=== PATIENT | female | born 1950 | race Caucasian/White ===

== ENCOUNTER 2019-03-01 08:00 | Day surgery (SDC) | payer MEDICARE, OTHER ==
[~2019-03-01] VITALS: Ht 167.6 cm; Wt 98.4 kg
[~2019-03-01 08:00] MED LIST: ASPI-903 PO; ATOR10TA65 PO; ATOR20TA38 PO; LOSA50TA14 PO; PREM9 PO
[2019-03-01 08:35] VITALS: Ht 167.6 cm; Wt 98.4 kg
--- NOTE | 2019-03-01 08:50 | PREAC ---
Date/Time of Note Date/Time of Note DATE: 03/01/19 TIME: 08:49 Anesthesia Eval and Record Evaluation Time Pre-Procedure Interview DATE: 03/01/19 TIME: 08:49 Age 68 Sex female NPO: 8 hrs Preoperative diagnosis change in bowel habits Planned procedure colonoscopy Past Medical History Past Medical History: Includes Cardio: Dyslipidemia GI: Obesity Surgery & Anesthesia Issues No known issue Meds Anticoagulation: No Beta Raheem within 24 hr: No Reason Beta Raheem not given: Pt. not on B-Raheem Reported Medications Aspirin* (Aspirin* Chew) 81 Mg Tab.chew, 81 MG PO DAILY, TAB.CHEW 03/01/19 Atorvastatin Calcium* (Atorvastatin Calcium*) 20 Mg Tablet, 20 MG PO QHS, #30 TAB 03/01/19 Losartan Potassium* (Losartan Potassium*) 50 Mg Tablet, 50 MG PO DAILY, TAB 03/01/19 Discontinued Reported Medications Estrogens Conjugated* (Premarin*) 0.9 Mg Tablet, 0.3 MG PO DAILY, TAB 12/21/13 Atorvastatin Calcium (Atorvastatin Calcium) 10 Mg Tab, 10 MG PO HS, TAB 12/21/13 Meds reviewed: Yes Allergies Coded Allergies: No Known Allergy (Unverified , 12/21/13) Allergies Reviewed: Yes Labs/Studies Labs Reviewed: Reviewed by anesthesiologist test: Negative Pre-procedure Exam Airway: Adequate mouth opening, Adequate thyromental dist Mallampati: Mallampati II Teeth: Normal Lung: Normal Heart: Normal ASA Physical Status ASA physical status: 2 Emergency: None Planned Anesthetic General/MAC: Mask, MAC Pre-operative Attestations Prior to commencing anesthesia and surgery, the patient was re-evaluated, there was verification of: *The patient's identity *The results of appropriate recent lab work and preoperative vital signs *The above evaluation not changing prior to induction *Anesthetic plan, risk benefits, alternative and complications discussed with patient/family; questions answered; patient/family understands, accepts and wishes to proceed. JIMENA ROWLAND Mar 01, 2019 08:50
[2019-03-01] MEDS ORDERED: PROPOFOL 40 ML ONE (08:54)
[2019-03-01 09:17] VITALS: BP 123/68; PULSE 74; RESP 18
[2019-03-01] MEDS ORDERED: GLYCOPYRROLATE 0.4 MG INJ ONE (10:24)
[2019-03-01 10:40] VITALS: BP 134/69; RESP 15
--- NOTE | 2019-03-02 13:33 | PAC ---
Date/Time of Note Date/Time of Note DATE: 03/02/19 TIME: 13:33 Post-Anesthesia Notes Post-Anesthesia Note Last documented vital signs Vital Signs Date Temp Pulse Resp B/P (MAP) Pulse Ox O2 O2 Flow FiO2 Time Delivery Rate 03/01/19 15 134/69 95 Room Air 10:40 (90) 03/01/19 98.2 74 09:17 Activity: WNL Respiratory function: WNL Cardiovascular function: WNL Mental status: Baseline Pain reasonably controlled: Yes Hydration appropriate: Yes Nausea/Vomiting absent: Yes JIMENA ROWLAND Mar 02, 2019 13:33
== END 2019-03-01 12:36 | disposition home or self-care (01) ==
LOC: GIL 08:00
PROVIDERS: ATTEND Internal Medicine Gastroenterology
DX: R19.4 Change in bowel habit (principal); K64.8 Other hemorrhoids; K57.30 Diverticulosis of large intestine without perforation or abscess without bleeding; Z79.82 Long term (current) use of aspirin